=== PATIENT | male | born 1975 | race Caucasian/White ===

== ENCOUNTER → 2022-07-08 | Outpatient (CLI) | payer OTHER ==
[~2022-07-08] MED LIST: ALBIPROI INH; AZIT250 PO; FEXO180 PO; FLUT110OIA IH; NASOCORT; PRED10 PO
[2022-07-09 08:13] LABS: Stool Occult Bld Immuno 1 Positive (NEGATIVE)
== END | disposition home or self-care (01) ==
LOC: LAB SHORT 11:00
PROVIDERS: Family Medicine
DX: Z12.12 Encounter for screening for malignant neoplasm of rectum (principal)
CPT/HCPCS: G0328

== ENCOUNTER → 2022-09-12 | Outpatient (CLI) | payer OTHER | LOC: LAB SHORT 07:11 → PLD 07:11 | DX: R23.8 Other skin changes (principal) | CPT/HCPCS: 88341; 88342 ==

== ENCOUNTER 2022-10-31 06:33 | Day surgery (SDC) | payer OTHER ==
[~2022-10-31] VITALS: Ht 172.7 cm; Wt 123.6 kg
[2022-10-31] MEDS ORDERED: OLME5TAB (07:04)
[2022-10-31] MEDS ORDERED: MONT5TCH (07:05)
[2022-10-31] MEDS ORDERED: ZOCOR20 MG (07:05)
[2022-10-31] MEDS ORDERED: ERGO400 (07:05)
[2022-10-31] MEDS ORDERED: Cyclobenzaprine5 MG (07:05)
[2022-10-31] MEDS ORDERED: ALLO100 (07:05)
[2022-10-31] MEDS ORDERED: MAGCIT300 (07:05)
[2022-10-31] MEDS ORDERED: ALLEGRA ALLERG180 MG (07:06)
[2022-10-31] MEDS ORDERED: ASPI81CH (07:06)
[2022-10-31] MEDS ORDERED: IBUP200 (07:06)
[2022-10-31 09:00] VITALS: BP 163/107
== END 2022-10-31 09:03 | disposition home or self-care (01) ==
LOC: ORSCSDS 06:33
PROVIDERS: Surgery
PROC: 0DBM8ZX Excision of Descending Colon, Via Natural or Artificial Opening Endoscopic, Diagnostic (ICD-10-PCS; principal; 2022-10-31 08:00)
PROC: 0DBN8ZX Excision of Sigmoid Colon, Via Natural or Artificial Opening Endoscopic, Diagnostic (ICD-10-PCS; principal; 2022-10-31 08:00)
DX: R19.5 Other fecal abnormalities (principal); D12.4 Benign neoplasm of descending colon; D17.79 Benign lipomatous neoplasm of other sites; K64.8 Other hemorrhoids; I10 Essential (primary) hypertension; G47.33 Obstructive sleep apnea (adult) (pediatric); J45.909 Unspecified asthma, uncomplicated; E66.9 Obesity, unspecified; Z68.41 Body mass index [BMI] 40.0-44.9, adult; Z79.82 Long term (current) use of aspirin; Z79.899 Other long term (current) drug therapy
CPT/HCPCS: 88305; J2250; J2704; J7120

== ENCOUNTER 2023-01-04 15:11 | Inpatient (IN) | payer OTHER ==
[~2023-01-04] VITALS: Ht 172.7 cm; Wt 115.4 kg
[~2023-01-04 15:11] MED LIST changes: +ALLEGRA ALLERG180 MG; +ALLO100; +ASPI81CH; +Cyclobenzaprine5 MG; +ERGO400 PO; +IBUP200; +MAGCIT300; +MONT5TCH; +OLME5TAB; +ZOCOR20 MG
[2023-01-04 16:19] LABS: Albumin, Blood 3.8 g/dL (3.4-5.0); Albumin/Globulin Ratio 0.9 (0.8-1.8); Bilirubin, Total 0.7 mg/dL (0.1-1.0); Bun/Creatinine Ratio 29.2 (12.0-20.0); Calcium, Blood 10.1 mg/dL (8.5-10.1); Creatinine, Blood 1.68 mg/dL (0.60-1.20); Globulin, Blood 4.4 g/dL (2.2-4.0); Potassium, Blood 5.2 mmol/L (3.5-5.5); Total Protein, Blood 8.2 g/dL (6.4-8.2)
[2023-01-04 16:21] LABS: Source, Urine Clean Catch
[2023-01-04 16:27] LABS: Appearance, Urine Clear (Clear); Bilirubin, Urine Neg (Neg); Blood, Urine 1+ (Neg); Glucose Qualitative, Urine 4+ (Neg); Ketones, Urine Neg (Neg); Leukocyte Esterase, Urine Neg (Neg); Nitrite, Urine Neg (Neg); Protein, Urine Neg (Neg); Specific Gravity, Urine 1.015 (1.003-1.022); Urobilinogen, Urine NORM (Normal)
[2023-01-04 16:35] LABS: Color, Urine Pale Yellow (P-Yellow)
[2023-01-04 16:37] LABS: Bacteria Not Seen /hpf; Red Blood Cells, Urine 0-2 /hpf (0-2); Squamous Epithelial Cells Not Seen /hpf (Few); White Blood Cells, Urine 0-2 /hpf (0-5)
[2023-01-04 16:41] LABS: BASOPHILS PERCENT AUTO 1 % (0-2); EOSINOPHILS ABSOLUTE AUTO 0.13 K/mm3 (0.00-0.68); EOSINOPHILS PERCENT AUTO 1 % (0-6); Hematocrit 39.8 % (37.0-53.0); Hemoglobin 14.4 g/dL (13.5-17.5); IMMATURE GRAN ABSOLUTE AUTO 0.05 K/mm3 (0.00-0.10); IMMATURE GRAN PERCENT AUTO 1 % (0-1); LYMPHOCYTES ABSOLUTE AUTO 2.48 K/mm3 (0.84-5.20); LYMPHOCYTES PERCENT AUTO 24 % (21-46); MONOCYTES ABSOLUTE AUTO 1.04 K/mm3 (0.16-1.47); MONOCYTES PERCENT AUTO 10 % (4-13); Mean Corpuscular HGB 29.6 pg (26.0-34.0); Mean Corpuscular HGB Conc 36.2 g/dL (31.5-36.5); Mean Corpuscular Volume 82 fL (80-100); Mean Platelet Volume 11.5 fL (9.1-12.4); NEUTROPHILS ABSOLUTE AUTO 6.72 K/mm3 (1.96-9.15); NEUTROPHILS PERCENT AUTO 64 % (41-73); Platelet Count 261 K/mm3 (150-400); RDW Coefficient Variation 12.4 % (11.7-14.2); RDW Standard Deviation 37.1 fL (35.1-46.3); Red Blood Cell Count 4.87 M/mm3 (4.30-5.90); White Blood Cell Count 10.52 K/mm3 (4.00-11.30)
[2023-01-04 18:46] LABS: PCO2 Venous 52.2 mmHg (38-42); pH Blood Venous 7.26 (7.34-7.37)
[2023-01-04 18:47] LABS: Base Excess Venous -3.4 mmol/L; Bicarbonate Venous 20.4 mmol/L (24.0-30.0)
[2023-01-04 21:45] VITALS: BP 141/89
[2023-01-04 22:19] LABS: Bun/Creatinine Ratio 28.9 (12.0-20.0); Calcium, Blood 9.6 mg/dL (8.5-10.1); Creatinine, Blood 1.49 mg/dL (0.60-1.20); Potassium, Blood 4.6 mmol/L (3.5-5.5)
[2023-01-05] VITALS (7 sets, daily range): BP systolic 109–146; BP diastolic 66–110
[2023-01-05 05:26] LABS: Albumin, Blood 2.8 g/dL (3.4-5.0); Albumin/Globulin Ratio 0.8 (0.8-1.8); Bilirubin, Total 0.4 mg/dL (0.1-1.0); Bun/Creatinine Ratio 28.9 (12.0-20.0); Calcium, Blood 9.1 mg/dL (8.5-10.1); Creatinine, Blood 1.49 mg/dL (0.60-1.20); Globulin, Blood 3.6 g/dL (2.2-4.0); Magnesium, Blood 2.9 mg/dL (1.6-2.4); Potassium, Blood 4.8 mmol/L (3.5-5.5); Total Protein, Blood 6.4 g/dL (6.4-8.2)
--- NOTE | 2023-01-05 06:40 | NUR ---
EOS: PATIENT ED ADMIT, ALERT AND ORIENTED X 4 HERE FOR CBG CONTROLL WITH NEW ONSET OF DM, SDTILL UNCONTROLLED. LSS HUMALOG, AND FLUID RESUSCITATION. PATIENT HAD HAD AN INCREASE TO CBG IN AM LABS 1 TIME 10 UNIT GIVEN, PATIENT AWARE, NO CHANGE. DID HAVE A SNACK AT 2250. WITH COVERAGE AT 0000. OTHER THAN CBG, OVERALL IMPROVING. PATIENT HAS BEEN INCREASING STRENGTH IN LEGS BILATERALLY. FWW TO BATHROOM. VOIDING WELL. CLEAR YELLOW. PATIENT TOLERATED CPAP FOR ROUGHLY 3-4 HOURS. PATIENT OBVIOUS SPO2 DROPS WHILE SLEEPING WITHOUT CPAP. PATIENT COOPERATIVE WITH CARE, MUCH DM EDUCATION GIVEN. NO BM FOR THIS RN. MED REC INCOMPLETE.
[2023-01-05] MEDS ORDERED: GUAI600T33 PO (06:46)
[2023-01-05] MEDS ORDERED: LOW DOSE ASPIRI81 M1 PO (06:46)
[2023-01-05] MEDS ORDERED: Flonase 0.05% N16 GM (06:46)
[2023-01-05] MEDS ORDERED: MAGNESIUM OXID500 MG PO (06:47)
[2023-01-05 11:07] LABS: Glucose, Blood 521 mg/dL (70-99)
[2023-01-05 11:11] LABS: CHOL/HDL RATIO 6.5; Cholesterol 149 mg/dL (50-200); HDL Cholesterol 23 mg/dL (>39); LDL/HDL RATIO Unable to Calculate; Low Density Lipoprotein Chol Unable to Calculate mg/dL (0-110); Triglycerides 782 mg/dL (30-160); Very Low Density Lipoprot Chol Unable to Calculate mg/dL (6-32)
[2023-01-05 11:22] LABS: LDL Direct Measurement 52 mg/dL (0-130)
--- NOTE | 2023-01-05 18:05 | NUR ---
SHIFT SUMMARY; ASSUMED CARE AT 0700, A/A/OX4 DURING SHIFT. UP TO RECLINER CHAIR FOR SEVERAL HOURS DURING DAY WITH MINIMAL ASSISTANCE. NS INFUSING AT 200ML/HR. INSULIN COVERAGE PER EMAR. TELEPHONE CALL TO DR. KHAN REGARDING HIGH CHEMBG OF 521. VERBAL ORDERS GIVEN FOR 5UNITS HUMALOG WITH MEALS AND HIGH S/S COVERAGE. ORDER PLACED. MEDICATED PER ORDER. INSULIN INJECTION TEACHING WITH PT IN AFTERNOON WITH PT ASSISTING IN GIVING SELF INSULIN. VSS, WILL CONTINUE TO MONITOR AND TREAT UNTIL CHANGE OF SHIFT.
--- NOTE | 2023-01-06 00:59 | NUR ---
REPORT GIVEN TO EMILIA QUINONES TO ASSUME CARE AT THIS TIME.
[2023-01-06 04:39] VITALS: BP 152/80
[2023-01-06 05:07] LABS: BASOPHILS ABSOLUTE AUTO 0.07 K/mm3 (0.00-0.23); BASOPHILS PERCENT AUTO 1 % (0-2); EOSINOPHILS ABSOLUTE AUTO 0.26 K/mm3 (0.00-0.68); EOSINOPHILS PERCENT AUTO 4 % (0-6); Hematocrit 31.7 % (37.0-53.0); Hemoglobin 11.2 g/dL (13.5-17.5); IMMATURE GRAN ABSOLUTE AUTO 0.06 K/mm3 (0.00-0.10); IMMATURE GRAN PERCENT AUTO 1 % (0-1); LYMPHOCYTES PERCENT AUTO 36 % (21-46); MONOCYTES ABSOLUTE AUTO 0.63 K/mm3 (0.16-1.47); MONOCYTES PERCENT AUTO 9 % (4-13); Mean Corpuscular HGB 29.7 pg (26.0-34.0); Mean Corpuscular HGB Conc 35.3 g/dL (31.5-36.5); Mean Corpuscular Volume 84 fL (80-100); Mean Platelet Volume 10.9 fL (9.1-12.4); NEUTROPHILS ABSOLUTE AUTO 3.55 K/mm3 (1.96-9.15); NEUTROPHILS PERCENT AUTO 50 % (41-73); Platelet Count 185 K/mm3 (150-400); RDW Coefficient Variation 12.4 % (11.7-14.2); RDW Standard Deviation 38.1 fL (35.1-46.3); Red Blood Cell Count 3.77 M/mm3 (4.30-5.90); White Blood Cell Count 7.17 K/mm3 (4.00-11.30)
[2023-01-06 05:49] LABS: Albumin, Blood 2.7 g/dL (3.4-5.0); Albumin/Globulin Ratio 0.8 (0.8-1.8); Bilirubin, Total 0.4 mg/dL (0.1-1.0); Bun/Creatinine Ratio 24.1 (12.0-20.0); Calcium, Blood 8.6 mg/dL (8.5-10.1); Creatinine, Blood 1.12 mg/dL (0.60-1.20); Globulin, Blood 3.6 g/dL (2.2-4.0); Potassium, Blood 4.4 mmol/L (3.5-5.5); Total Protein, Blood 6.3 g/dL (6.4-8.2)
[2023-01-06 07:43] VITALS: BP 129/76
[2023-01-06 15:07] VITALS: BP 123/72
--- NOTE | 2023-01-06 16:29 | NUR ---
SHIFT SUMMARY PT IS A&OX4, SBA IN THE ROOM, CALLS APPROPRIATELY, MED NO TELE, AND IS ON RA W/ NO COMPLAINTS. NO ACUTE EVENTS. PT/ HAVE BEEN PROVIDED DIABETIC EDUCATION AND THE DIETITIAN CAME AND SPOKE TO BOTH THE PT/SPOUSE. THE PT HAS BEEN ABLE TO DEMONSTRATE THAT HE KNOWS HOW TO GIVE HIMSELF INSULIN AND HOW TO READ THE HIGH SLIDING SCALE CHART. PT HAS BEEN ABLE TO GIVE HIMSELF INSULIN THE ENTIRE SHIFT. HE IS VERY PLEASANT AND COOPERATIVE WITH CARE. FIRE IGNITION RISK AND SAFETY HAVE BEEN ASSESSED AND EDUCATION WAS PROVIDED.
--- NOTE | 2023-01-06 16:51 | NUR ---
CARE HANDED OFF THE SLIME Conroy RN.
[2023-01-06 19:32] VITALS: BP 136/79
[2023-01-07 00:44] VITALS: BP 149/77
--- NOTE | 2023-01-07 04:12 | NUR ---
SHIFT SUMMARY: PATIENT IS A&OX4. VS ARE WNL AND IS ON RA. PATIENT CONTINUES TO BE ON CBG Q4H CHECKS FOR BETTER BLOOD SUGAR CONTROL WITH NEW ONSET OF DM. PATIENT HAS BEEN ABLE TO DEMONSTRATE WITH THIS NURSE HOW TO USE THE GLUCOMETER AND IF HE NEEDED INSULIN WHERE HE WOULD INJECT. THIS NURSE ALSO GAVE PATIENT A COUPLE OF NEW ONSET DIABETIC PAMPHLETS WHICH ARE AT HIS BEDSIDE WELL. PATIENT ALSO CONTINUES TO HAVE IV FLUIDS RUNNING. HE IS TOLERATING PO INTAKE AND IS VOIDING/HAD A BM THIS SHIFT. HE IS A SBA TO THE BATHROOM DUE TO IV POLE/CORDS. HE CALLS APPROPRIATELY. PATIENT IS CURRENTLY LAYING BACK IN BED WITH CALL LIGHT IN REACH.
[2023-01-07 05:08] VITALS: BP 144/89
[2023-01-07 07:36] LABS: BASOPHILS ABSOLUTE AUTO 0.05 K/mm3 (0.00-0.23); BASOPHILS PERCENT AUTO 1 % (0-2); EOSINOPHILS ABSOLUTE AUTO 0.25 K/mm3 (0.00-0.68); EOSINOPHILS PERCENT AUTO 4 % (0-6); Hemoglobin 11.3 g/dL (13.5-17.5); IMMATURE GRAN ABSOLUTE AUTO 0.11 K/mm3 (0.00-0.10); IMMATURE GRAN PERCENT AUTO 2 % (0-1); LYMPHOCYTES ABSOLUTE AUTO 2.34 K/mm3 (0.84-5.20); LYMPHOCYTES PERCENT AUTO 36 % (21-46); MONOCYTES ABSOLUTE AUTO 0.65 K/mm3 (0.16-1.47); MONOCYTES PERCENT AUTO 10 % (4-13); Mean Corpuscular HGB 29.4 pg (26.0-34.0); Mean Corpuscular HGB Conc 34.2 g/dL (31.5-36.5); Mean Corpuscular Volume 86 fL (80-100); Mean Platelet Volume 10.6 fL (9.1-12.4); NEUTROPHILS ABSOLUTE AUTO 3.15 K/mm3 (1.96-9.15); NEUTROPHILS PERCENT AUTO 48 % (41-73); Platelet Count 183 K/mm3 (150-400); RDW Coefficient Variation 12.3 % (11.7-14.2); RDW Standard Deviation 38.7 fL (35.1-46.3); Red Blood Cell Count 3.84 M/mm3 (4.30-5.90); White Blood Cell Count 6.55 K/mm3 (4.00-11.30)
[2023-01-07 08:02] LABS: Bun/Creatinine Ratio 16.4 (12.0-20.0); Calcium, Blood 8.3 mg/dL (8.5-10.1); Creatinine, Blood 0.98 mg/dL (0.60-1.20); Potassium, Blood 4.7 mmol/L (3.5-5.5)
[2023-01-07 08:49] VITALS: BP 134/87
[2023-01-07] MEDS ORDERED: INSULIN GL100 UNIT/4 SC (12:30)
[2023-01-07] MEDS ORDERED: LOVAZA PO (12:32)
[2023-01-07] MEDS ORDERED: HUMALOG KW100 UNIT/1 SC ×2 (12:33→15:09)
--- NOTE | 2023-01-07 13:05 | NUR ---
PT DISCHARGED HOME WITH . IV/POWERGLIDE REMOVED, CATHETERS INTACT SITES WNL. DISCHARGE TEACHING COMPLETED INCLUDING MEDICATION LIST, FOLLOW UP APPOINTMENTS, GLUCOMETER USE, INSULIN SLIDING SCALE AND INJECTION TECHNIQUES. PT/ HAVE NO QUESTIONS OR CONCERNS AT THIS TIME. RXs SENT TO PT'S PERFERED PHARMACY. PT AMBULATORY WITH A STEADY GAIT, VSS. ALL BELONGINGS SENT HOME WITH PT. NO FURTHER DISCHARGE NEEDS IDENTIFIED AT THIS TIME.
--- NOTE | 2023-01-07 14:34 | NUR ---
PT's CONTACTED VIA PHONE AND UPDATED ON MEDICATION INSTRUCTION: 15UNIT NOVOLOG INSULIN W MEALS PLUS MEDIUM SLIDING SCALE COVERAGE SHE VERBALIZED UNDERSTANDING AND REPEATED BACK THE INSTRUCTIONS.
== END 2023-01-07 13:07 | disposition home or self-care (01) | DRG 682 ==
LOC: ER 15:11 → PCU 18:43
PROVIDERS: Family Medicine; Internal Medicine; Nurse Practitioner Acute Care; Physician Assistant; Student in an Organized Health Care Education/Training Program; ADMIT Internal Medicine
DX: N17.9 Acute kidney failure, unspecified (principal); G92.8 Other toxic encephalopathy; E87.1 Hypo-osmolality and hyponatremia; Z68.41 Body mass index [BMI] 40.0-44.9, adult; E87.29 Other acidosis; E11.65 Type 2 diabetes mellitus with hyperglycemia; E86.0 Dehydration; J45.909 Unspecified asthma, uncomplicated; E78.5 Hyperlipidemia, unspecified; E78.1 Pure hyperglyceridemia; I10 Essential (primary) hypertension; G47.33 Obstructive sleep apnea (adult) (pediatric); E66.01 Morbid (severe) obesity due to excess calories; Z88.8 Allergy status to other drugs, medicaments and biological substances; Z79.899 Other long term (current) drug therapy; Z79.82 Long term (current) use of aspirin; Z79.1 Long term (current) use of non-steroidal anti-inflammatories (NSAID); Z98.890 Other specified postprocedural states; Z99.89 Dependence on other enabling machines and devices
CPT/HCPCS: 36415; 70450; 71046; 80048; 80053; 80061; 81001; 82330; 82803; 82947; 83036; 83721; 83735; 85025; 93005; 93010; 94640; 94660; 94664; 94762; 96360; 99285-25; A9270; J0696; J1644; J1815; J7030; J7120

== ENCOUNTER → 2023-10-20 | Outpatient (CLI) | payer OTHER ==
[~2023-10-20] MED LIST changes: +Flonase 0.05% N16 GM; +GUAI600T33 PO; +HUMALOG KW100 UNIT/1 SC; +INSULIN GL100 UNIT/4 SC; +LOVAZA PO; +LOW DOSE ASPIRI81 M1 PO; +MAGNESIUM OXID500 MG PO
[2023-10-20 16:26] LABS: BASOPHILS ABSOLUTE AUTO 0.05 K/mm3 (0.00-0.23); BASOPHILS PERCENT AUTO 1 % (0-2); EOSINOPHILS ABSOLUTE AUTO 0.27 K/mm3 (0.00-0.68); EOSINOPHILS PERCENT AUTO 3 % (0-6); Hematocrit 44.1 % (37.0-53.0); Hemoglobin 14.5 g/dL (13.5-17.5); IMMATURE GRAN ABSOLUTE AUTO 0.01 K/mm3 (0.00-0.10); IMMATURE GRAN PERCENT AUTO 0 % (0-1); LYMPHOCYTES ABSOLUTE AUTO 2.26 K/mm3 (0.84-5.20); LYMPHOCYTES PERCENT AUTO 28 % (21-46); MONOCYTES ABSOLUTE AUTO 0.72 K/mm3 (0.16-1.47); MONOCYTES PERCENT AUTO 9 % (4-13); Mean Corpuscular HGB 26.9 pg (26.0-34.0); Mean Corpuscular HGB Conc 32.9 g/dL (31.5-36.5); Mean Corpuscular Volume 82 fL (80-100); Mean Platelet Volume 10.7 fL (9.1-12.4); NEUTROPHILS ABSOLUTE AUTO 4.86 K/mm3 (1.96-9.15); NEUTROPHILS PERCENT AUTO 60 % (41-73); Platelet Count 322 K/mm3 (150-400); RDW Coefficient Variation 14.6 % (11.7-14.2); RDW Standard Deviation 42.5 fL (35.1-46.3); White Blood Cell Count 8.17 K/mm3 (4.00-11.30)
[2023-10-20 16:46] LABS: Very Low Density Lipoprot Chol 20 mg/dL (6-32)
[2023-10-20 16:57] LABS: Thyroid Stimulating Hormone 0.473 uIU/mL (0.360-4.800)
[2023-10-20 16:58] LABS: Alanine Aminotransfer (ALT/SGP 32 U/L (12-78); Alk Phos 78 U/L (50-136); Anion Gap 8 mmol/L (3-11); Aspartate Aminotrans (AST/SGOT 26 U/L (12-37); Bilirubin, Total 0.6 mg/dL (0.1-1.0); Blood Urea Nitrogen 17 mg/dL (8-24); Bun/Creatinine Ratio 19.6 (12.0-20.0); CO2, Blood 25 mmol/L (21-32); Calcium, Blood 9.3 mg/dL (8.5-10.1); Chloride, Blood 107 mmol/L (98-108); Cholesterol 125 mg/dL (50-200); Creatinine, Blood 0.87 mg/dL (0.60-1.20); Globulin, Blood 4.1 g/dL (2.2-4.0); Glomerular Filtration Rate 108 (60-); Glucose, Blood 100 mg/dL (70-99); HDL Cholesterol 42 mg/dL (>39); LDL/HDL RATIO 1.5; Low Density Lipoprotein Chol 63 mg/dL (0-110); Potassium, Blood 4.3 mmol/L (3.5-5.5); Sodium, Blood 136 mmol/L (136-145); Total Protein, Blood 8.1 g/dL (6.4-8.2); Triglycerides 101 mg/dL (30-160)
== END | disposition home or self-care (01) ==
LOC: LAB 14:10 → LAB SHORT 14:10
PROVIDERS: Family Medicine
DX: E78.1 Pure hyperglyceridemia (principal); I10 Essential (primary) hypertension
CPT/HCPCS: 80053; 80061; 84443; 85025

== ENCOUNTER → 2025-03-16 | Outpatient (CLI) | payer OTHER | LOC: LAB SHORT 16:08 → LAB 16:08 | DX: M10.9 Gout, unspecified (principal) | CPT/HCPCS: 84550 ==